=== PATIENT | male | born 2000 ===

== ENCOUNTER 2018-02-24 13:42 | Emergency (ER) | payer MEDICAID ==
[2018-02-24 14:14] VITALS: BP 122/70; PULSE 64; RESP 16; TEMP 98.8; O2SAT 98
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
--- NOTE | 2018-02-24 15:21 | RAD ---
PROCEDURE: Left Hand Radiographs. HISTORY: pain COMPARISON: None. FINDINGS: BONES: No acute fracture or destructive bony lesion identified. JOINTS: Normal. No osteoarthritic changes. SOFT TISSUES: Normal. OTHER FINDINGS: None. IMPRESSION: Unremarkable left hand radiographs.
[2018-02-24] MEDS ORDERED: Bacitracin 500 Units/gm Oint Foilpak UD TOP ONE (15:29)
[2018-02-24] MEDS ORDERED: Bacitracin 500 Units/gm Oint Foilpak UD ONE (15:35)
== END 2018-02-24 15:45 | disposition home or self-care (01) ==
LOC: C.ER 13:42
DX: S60.417A Abrasion of left little finger, initial encounter (principal); S63.618A Unspecified sprain of other finger, initial encounter; V18.0XXA Pedal cycle driver injured in noncollision transport accident in nontraffic accident, initial encounter; Y93.55 Activity, bike riding; Y92.89 Other specified places as the place of occurrence of the external cause